=== PATIENT | female | born 1945 | race Caucasian/White ===

== ENCOUNTER 2018-06-21 19:27 | Observation (INO) | payer MEDICARE ==
--- NOTE | 2018-06-21 19:33 | ERPHSYRPT ---
- History of Present Illness Time Seen by Provider: 06/21/18 19:32 Source: family, EMS Exam Limitations: clinical condition Physician History: 72 y/o white female with h/o dementia found on floor by daughter. 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 pts daughter does state pt dementia worsening. daughter states pt is moving into her home because of her falling and late night walking. pt is not eating or drinking well Timing/Duration: today Severity: moderate Character of Deficits: new weakness, impaired speech Deficits: falling, decrease ability to stand, decrease ability to walk Baseline/Normal Cognition: alert but confused Current Cognition: alert but confused, alert/disoriented to time Baseline Gait: walks w/o assistance Associated Symptoms: confusion, weakness, slurred speech, trouble walking Allergies/Adverse Reactions: Sulfa (Sulfonamide Antibiotics) Allergy (Verified 03/15/16 17:12) oxycodone Adverse Reaction (Verified 03/15/16 17:12) Home Medications: Aspirin 81 gm Chew [Baby Aspirin 81 mg Chew] 81 mg PO HS 06/21/18 [History ] Atorvastatin Calcium 10 mg PO HS 06/21/18 [History] Donepezil HCl 10 mg [Aricept 10 MG] 10 mg PO HS 06/21/18 [History] Metoprolol Succinate 25 mg PO HS 06/21/18 [History] Mirtazapine 30 mg [Remeron 30 mg] 45 mg PO HS 06/21/18 [History] Hx Tetanus, Diphtheria Vaccination/Date Given: No Hx Influenza Vaccination/Date Given: No Hx Pneumococcal Vaccination/Date Given: No - Review of Systems Constitutional: Weakness Eyes: No Symptoms Ears, Nose, & Throat: No Symptoms Respiratory: No Symptoms Cardiac: No Symptoms, No Chest Pain, No Palpitations, No Syncope Abdominal/Gastrointestinal: No Symptoms, No Abdominal Pain, No Nausea, No Vomiting, No Diarrhea Genitourinary Symptoms: No Symptoms, No Dysuria, No Frequency, No Hematuria Musculoskeletal: Fall, No Back Pain, No Neck Pain, No Injury Skin: No Symptoms Neurological: Lethargy, Speech Changes Psychological: No Symptoms Endocrine: No Symptoms Hematologic/Lymphatic: No Symptoms Immunological/Allergic: No Symptoms All Other Systems: Reviewed and Negative - Past Medical History Pertinent Past Medical History: Yes Neurological History: Alzheimer's Disease, Dementia, Peripheral Neuropathy Cardiac History: Congestive Heart Failure, High Cholesterol, Hypertension Respiratory History: Bronchitis, COPD Endocrine Medical History: Diabetes Type II Musculoskeletal History: Arthritis GI Medical History: Other History: Renal Disease Psycho-Social History: Depression Other Medical History: INFECTION IN COLON, SURGERY TO REMOVE COLON - Past Surgical History Past Surgical History: Yes Gastrointestinal: Colon Resection Musculoskeletal: Orthopedic Surgery Other Surgical History: BACK SURGERY - Social History Smoking Status: Current every day smoker How long have you smoked: MANY Exposure to second hand smoke: Yes Drug Use: none Patient Lives Alone: No - Female History Hx Now: No (N) - Nursing Vital Signs Nursing Vital Signs: Initial Vital Signs Pulse Rate 84 06/21/18 19:43 Respiratory Rate 16 06/21/18 19:43 Blood Pressure 145/80 06/21/18 19:43 O2 Sat by Pulse Oximetry 96 06/21/18 19:43 Pain Scale Pain Intensity 0 - [place] Coma Scale Best Eye Response (Kendra): (4) open spontaneously Best Verbal Response (Kendra): (4) confused conversation Best Motor Response ([place]): (6) obeys commands Kendra Total: 14 - Physical Exam General Appearance: no apparent distress, alert, anxiety Eye Exam: bilateral eye: normal inspection, PERRL, EOMI Ears, Nose, Throat Exam: normal ENT inspection, dry mucous membranes Neck Exam: normal inspection, non-tender, supple, full range of motion Respiratory: normal breath sounds, lungs clear, airway intact, No chest tenderness, No respiratory distress, No accessory muscle use, No rhonchi, No wheezing, No stridor Cardiovascular: regular rate/rhythm, normal heart sounds, normal peripheral pulses Gastrointestinal: soft, normal bowel sounds, No tenderness, No guarding, No rebound Rectal Exam: not done Back Exam: normal inspection, normal range of motion, No CVA tenderness, No vertebral tenderness Extremity Exam: normal inspection, normal range of motion, pelvis stable 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, 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 Exam: normal hearing, PERRL, tongue midline Motor/Sensory: no motor deficit, no sensory deficit, no pronator drift Skin Exam: normal color, warm, dry SpO2 Interpretation: normal O2 Delivery: Room Air - Course Nursing assessment & vital signs reviewed: Yes EKG Interpreted by Me: RATE (82), Sinus Rhythm, Right Bundle Branch Block, Non- specific ST Changes, Other (s1/q3 pattern; when compared to ekg dated 03/15/16, new s1/q3 pattern) Ordered Tests: Active Orders 24 hr Category Date Time Status Accucheck STAT Care 06/21/18 19:33 Active Math And Science Instructor STAT Care 06/21/18 19:35 Active Catheter-[place] Shea STAT Care 06/21/18 19:33 Active EKG-ER Only STAT Care 06/21/18 19:33 Active IV Insertion STAT Care 06/21/18 19:33 Active Pulse Oximetry (ED) STAT Care 06/21/18 19:33 Active HEAD WITHOUT CONTRAST [CT] Routine Exams 06/21/18 19:38 Taken CBC W DIFF Stat Lab 06/21/18 19:50 Completed CULTURE,URINE Stat Lab 06/21/18 20:30 Received PROTIME WITH INR Stat Lab 06/21/18 19:50 Completed UA W/RFX UR CULTURE Stat Lab 06/21/18 20:30 Completed Medication Summary Discontinued Medications Generic Name Dose Route Start Last Admin Trade Name Kedarq PRN Reason Stop Dose Admin Ceftriaxone Sodium/Dextrose 1 g in 50 mls @ 100 mls/hr 06/21/18 21:44 22:18 Rocephin 1 Gm-D5w 50 Ml Bag IV 06/21/18 22:13 Infused STAT STA Infusion Ceftriaxone Sodium/Dextrose Confirm 06/21/18 21:47 Rocephin 1 Gm-D5w 50 Ml Bag Administered 06/21/18 21:48 Dose 1 g in 50 mls @ ud IV .K-MED ONE Lab/Rad Data: Laboratory Result Diagrams 06/21/18 19:50 Laboratory Results 06/21/18 06/21/18 06/21/18 Range/Units 20:30 19:50 19:50 WBC 12.1 H (4.0-10.5) K/mm3 RBC 5.41 H (4.1-5.4) M/mm3 Hgb 16.1 H (12.0-16.0) gm/dl Hct 49.8 H (35-47) % MCV 92.1 (78-100) fl MCH 29.7 (26-32) pg MCHC 32.3 (32-36) g/dl RDW 13.6 (11.5-14.0) % Plt Count 188 (150-450) K/mm3 MPV 12.2 H (6-9.5) fl Gran % 88.1 H (36.0-66.0) % Eos # (Auto) 0.01 (0-0.5) Absolute Lymphs (auto) 0.68 L (1.0-4.6) Absolute Monos (auto) 0.72 (0.0-1.3) Lymphocytes % 5.6 L (24.0-44.0) % Monocytes % 6.0 (0.0-12.0) % Eosinophils % 0.1 (0.00-5.0) % Basophils % 0.2 (0.0-0.4) % Absolute Granulocytes 10.66 H (1.4-6.9) Basophils # 0.02 (0-0.4) PT 13.3 H (9.95-12.35) SECONDS INR 1.14 (0.8-3.0) Urine Color ESTRELLITA (YELLOW) Urine Appearance CLOUDY (CLEAR) Urine pH 7.0 (5-6) Ur Specific [place] 1.019 (1.005-1.025) Urine Protein 100 (Negative) Urine Ketones TRACE (NEGATIVE) Urine Blood SMALL (0-5) Jacoby/ul Urine Nitrite NEGATIVE (NEGATIVE) Urine Bilirubin NEGATIVE (NEGATIVE) Urine Urobilinogen 4 (0-1) mg/dL Ur Leukocyte Esterase SMALL (NEGATIVE) Urine WBC (Auto) >100 (0-5) /HPF Urine RBC (Auto) NONE (0-2) /HPF U Epithel Cells (Auto) NONE (FEW) /HPF Urine Bacteria (Auto) MANY (NEGATIVE) /HPF Urine Mucus (Auto) MANY (NEGATIVE) /HPF Urine Culture Reflexed YES (NO) Urine Glucose NEGATIVE (NEGATIVE) mg/dL - Progress Progress: improved, re-examined Progress Note: 06/21/18 22:[address] zamorano. i reviewed pt hx, condition, lab, ekg and ct scan head results. he accepts pt for obs. ct scan head reveals pansinusitis but no other acute intracranial process Discussed with .: Zeyad Counseled pt/family regarding: lab results, diagnosis, need for follow-up, rad results - Departure Time of Disposition: 23:00 Departure Disposition: Observation Clinical Impression: Dehydration, UTI (urinary tract infection), Pansinusitis Condition: Stable Critical Care Time: No Referrals: JEFRY HERNANDEZ [ACTIVE STAFF] -
[2018-06-21 19:58] LABS: BASOPHIL % 0.2 % (0.0-0.4); Basophil (Absolute #) 0.02 (0-0.4); Eosinophil % 0.1 % (0.00-5.0); Eosinophil (Absolute #) 0.01 (0-0.5); Granulocyte Absolute (ANC) 10.66 (1.4-6.9); Granulocytes % 88.1 % (36.0-66.0); Hematocrit 49.8 % (35-47); Hemoglobin 16.1 gm/dl (12.0-16.0); Lymphocyte (Absolute #) 0.68 (1.0-4.6); Lymphocytes % 5.6 % (24.0-44.0); Mean Cell Volume 92.1 fl (78-100); Mean Corpuscular Hgb Concent. 32.3 g/dl (32-36); Mean Platelet Volume 12.2 fl (6-9.5); Monocyte (Absolute #) 0.72 (0.0-1.3); Platelet Count 188 K/mm3 (150-450); Red Blood Count 5.41 M/mm3 (4.1-5.4); Red Cell Distribution Width 13.6 % (11.5-14.0); White Blood Count 12.1 K/mm3 (4.0-10.5)
[2018-06-21 20:08] LABS: INR 1.14 (0.8-3.0); PROTIME 13.3 SECONDS (9.95-12.35)
[2018-06-21 20:15] LABS: Mean Corpuscular Hemoglobin 29.7 pg (26-32)
[2018-06-21 21:35] LABS: Appearance CLOUDY (CLEAR); Bacteria MANY /HPF (NEGATIVE); Bilirubin NEGATIVE (NEGATIVE); Blood SMALL Ery/ul (0-5); Glucose NEGATIVE (NEGATIVE); Ketones TRACE (NEGATIVE); Leukocyte Esterase SMALL (NEGATIVE); Mucus MANY /HPF (NEGATIVE); Nitrite NEGATIVE (NEGATIVE); Protein,Urine Dip 100 (Negative); Specific Gravity 1.019 (1.005-1.025); Urobilinogen 4 mg/dL (0-1); WBC >100 /HPF (0-5)
[2018-06-21] MEDS ORDERED: ROCEPHIN 1 Gm-D5w 50 ml Bag** 1 G/50 ML IVPB IV STA (21:44)
[2018-06-21] MEDS ORDERED: ROCEPHIN 1 Gm-D5w 50 ml Bag** 1 G/50 ML IVPB IV ONE (21:47)
[2018-06-22] MEDS ORDERED: TYLENOL 325 MG PO PRN (00:56)
[2018-06-22] MEDS ORDERED: Sodium Chloride 0.9% 1000 ML 1,000 ML IV SCH (00:56)
[2018-06-22] MEDS ORDERED: Zofran 4 MG/2 ML VIAL IV ONE (00:56)
[2018-06-22] MEDS ORDERED: ECOTRIN 81 MG PO ONE (01:25)
[2018-06-22] MEDS ORDERED: Zocor 10MG ONE (01:25)
[2018-06-22] MEDS ORDERED: Toprol-Xl 25MG Tablets ONE (01:25)
[2018-06-22] MEDS ORDERED: Aricept 10 MG ONE (01:26)
[2018-06-22] MEDS ORDERED: REMERON 30 MG ONE (01:26)
[2018-06-22] MEDS: Toprol-Xl 25MG Tablets PO SCH ×2 (01:28→21:39)
[2018-06-22] MEDS: Zocor 10MG PO SCH ×2 (01:28→21:39)
[2018-06-22] MEDS: Aricept 10 MG PO SCH ×2 (01:28→21:38)
[2018-06-22] MEDS: ECOTRIN 81 MG PO SCH ×2 (01:28→21:39)
[2018-06-22] MEDS: REMERON 30 MG PO SCH ×2 (01:30→21:38)
[2018-06-22 03:31] LABS: 027 TOX PROD PRESUMPTIVE NEGATIVE (NEGATIVE); TOXIGENIC C. DIFF ORG NEGATIVE (NEGATIVE)
[2018-06-22 05:49] LABS: Hematocrit 44.7 % (35-47); Hemoglobin 14.6 gm/dl (12.0-16.0); Mean Cell Volume 91.6 fl (78-100); Mean Corpuscular Hemoglobin 29.9 pg (26-32); Mean Corpuscular Hgb Concent. 32.7 g/dl (32-36); Mean Platelet Volume 11.5 fl (6-9.5); Platelet Count 160 K/mm3 (150-450); Red Blood Count 4.88 M/mm3 (4.1-5.4); Red Cell Distribution Width 13.5 % (11.5-14.0); White Blood Count 12.5 K/mm3 (4.0-10.5)
[2018-06-22 06:17] LABS: ALBUMIN 3.7 g/dL (3.5-5.0); ALKALINE PHOSPHATASE 132 U/L (38-126); ANION GAP 12.7 MEQ/L (5-15); BLOOD UREA NITROGEN 37 mg/dL (7-17); CHLORIDE 105 mmol/L (98-107); Calcium 9.1 mg/dL (8.4-10.2); Carbon Dioxide 26 mmol/L (22-30); Creatinine 1 0.89 mg/dL (0.52-1.04); Glucose 125 mg/dL (74-106); Potassium 3.4 mmol/L (3.5-5.1); SGOT/AST 43 U/L (14-36); SGPT/ALT 23 U/L (0-35); SODIUM 140 mmol/L (137-145); Total Protein 6.8 g/dL (6.3-8.2)
[2018-06-22] MEDS ORDERED: NON-FORMULARY ITEM (Naproxen Sodium [Aleve] 220 MG) PO PRN (07:12)
--- NOTE | 2018-06-22 08:44 | XRAY ---
Indication: Weakness. Possible stroke. Multiple contiguous axial images obtained through the head without contrast. Comparison: March 17, 2016. Stable age-appropriate global atrophy, mild periventricular degenerative micro-ischemia bilaterally, and remote left caudate head lacunar infarct. No acute intracranial hemorrhage, abnormal extra-axial fluid collection, or mass effect. Fourth ventricle is midline without hydrocephalus. Bony calvarium intact. Visualized paranasal sinuses now demonstrates mild/moderate mucosal thickening bilaterally. Mastoid air cells are clear. Impression: 1. Nonacute senile brain including remote left caudate lacunar infarct. 2. New pansinusitis. CT DI 70.00
[2018-06-22 09:03] LABS: INFLUENZA A NEGATIVE (NEGATIVE); INFLUENZA B NEGATIVE (NEGATIVE); RESPIRATORY SYNCTIAL VIRUS NEGATIVE (Negative)
[2018-06-22] MEDS: Naprosyn 500 MG PO PRN ×2 (09:17→21:38)
--- NOTE | 2018-06-22 09:35 | HP ---
CHIEF COMPLAINT: Lethargy and fall. HISTORY OF PRESENT ILLNESS: The patient is a 72 year-old white female who was found at home laying on the floor by her daughter. The daughter reports that the patient does have dementia which has been worsening recently over the past couple of three days particularly. She had been followed by Dr. Gallegos who has now left for another job. The patient otherwise is known to have dementia. Recently she has not been eating or drinking well. MEDICATIONS: Her home medications currently are aspirin 81 mg a day, Atorvastatin 10 mg, benazepril 10 mg, metoprolol 25 mg, Remeron 30 mg and Naproxen 220 mg every 12 hours PRN for pain. PHYSICAL EXAMINATION: Her vital signs on admission showed temperature 97.9F, pulse 84, respiratory rate 16, blood pressure 145/80. O2 saturation 96% on room air. Presently the patient is quite lethargic and very slow to respond, was unable to drink water from a straw when her daughter offered it to her. Although her daughter reports that she is quite slow to respond in the morning and is much better a couple hours after the day has gotten started. Physical examination otherwise reveals her to be an elderly, white female who is quite weak as mentioned. HEENT: Appear to be normocephalic, atraumatic. Oropharynx appeared to be somewhat dry. NECK: Supple. CHEST: Clear to auscultation. HEART: Reveals a 3/6 systolic murmur. There are no rubs or gallops heard, appears to be in sinus rhythm. ABDOMEN: Soft, bowel sounds are normal. There are no palpable masses. She is wearing a Depends diaper. EXTREMITIES: Without cyanosis, clubbing or edema. NEUROLOGIC: The patient is quite lethargic. She does open her eyes but has not responded verbally at this point. LAB DATA AND TESTS: The patient's laboratory studies in the emergency room showed international normalized ratio 1.14. Her white count was 12,100, hemoglobin 16.1, PLT count 188,000. There were 88.1% granulocytes. She did have a urine that showed a specific gravity of 1.019, leukocytes were small, nitrite negative however there was greater than 100 white blood cells per high power field. She had a Clostridium difficile done for what appeared to be some diarrhea which was negative. Her sugar is 125, BUN 37, creatinine 0.89. Electrolytes show the potassium to be slightly low at 3.4. Liver enzymes are normal. ASSESSMENT: A patient with dehydration and probable urinary tract infection. Urine has been cultured. She will begin on Rocephin empirically. She is receiving IV fluids for IV fluid hydration. She appears to be dehydrated as well. The patient has baseline underlying problem with Alzheimer's. The patient has now been admitted. She is receiving IV fluids and IV Rocephin empirically while the cultures are pending. The patient, as stated from her daughter, will be going to her sister's home for care after this stay and they are requesting a hospital bed. At this time we will facilitate this and plan for her possible discharge home upon discharge from the hospital.
[2018-06-22] MEDS: ENOXAPARIN SODIUM SQ SCH (10:25)
[2018-06-22] MEDS: D5W/0.45NS W/ 20mEq KCl 1000 ML 1,000 ML IV SCH ×2 (10:59→19:45)
[2018-06-22] MEDS: ROCEPHIN 1 Gm-D5w 50 ml Bag** 1 G/50 ML IVPB IV SCH (21:39)
[2018-06-23] MEDS: D5W/0.45NS W/ 20mEq KCl 1000 ML 1,000 ML IV SCH ×3 (04:12→21:24)
[2018-06-23 05:40] LABS: BASOPHIL % 0.2 % (0.0-0.4); Basophil (Absolute #) 0.02 (0-0.4); Eosinophil % 2.7 % (0.00-5.0); Eosinophil (Absolute #) 0.22 (0-0.5); Granulocyte Absolute (ANC) 5.97 (1.4-6.9); Granulocytes % 72.4 % (36.0-66.0); Hematocrit 44.1 % (35-47); Hemoglobin 14.2 gm/dl (12.0-16.0); Lymphocyte (Absolute #) 1.01 (1.0-4.6); Lymphocytes % 12.3 % (24.0-44.0); Mean Cell Volume 93.4 fl (78-100); Mean Corpuscular Hemoglobin 30.1 pg (26-32); Mean Corpuscular Hgb Concent. 32.2 g/dl (32-36); Mean Platelet Volume 11.7 fl (6-9.5); Monocyte (Absolute #) 1.02 (0.0-1.3); Monocytes % 12.4 % (0.0-12.0); Platelet Count 145 K/mm3 (150-450); Red Blood Count 4.72 M/mm3 (4.1-5.4); Red Cell Distribution Width 13.6 % (11.5-14.0); White Blood Count 8.2 K/mm3 (4.0-10.5)
[2018-06-23 06:01] LABS: ALBUMIN 3.1 g/dL (3.5-5.0); ALKALINE PHOSPHATASE 112 U/L (38-126); ANION GAP 10.1 MEQ/L (5-15); BLOOD UREA NITROGEN 21 mg/dL (7-17); CHLORIDE 110 mmol/L (98-107); Calcium 8.5 mg/dL (8.4-10.2); Carbon Dioxide 25 mmol/L (22-30); Creatinine 1 0.75 mg/dL (0.52-1.04); Glucose 142 mg/dL (74-106); Potassium 3.9 mmol/L (3.5-5.1); SGOT/AST 38 U/L (14-36); SGPT/ALT 19 U/L (0-35); SODIUM 141 mmol/L (137-145)
[2018-06-23] MEDS: ENOXAPARIN SODIUM SQ SCH (09:40)
--- NOTE | 2018-06-23 10:54 | PCM.NOTE ---
Date and Time: 06/23/18 1048 Subjective Assessment: Her daughter is at the bedside; History taken from daughter due to patient having dementia; she states that yesterday the patient complained of right knee pain for the first time. Daughter reports when she found her before admission, she was lying on the floor so she doesn't know if she may have hurt her knee. Daughter states she is having trouble bending it. She usually is able to ambulate on her own at home. She also smokes at home and is now asking to go out to smoke so her daughter would like for her to have a nicotine patch. She has a catheter in due to decreased mobility, her daughter reports She reports patient has sinus problems too. She states her mom is much more alert today. - Review of Systems Constitutional: Weakness Eyes: Photophobia Ears, Nose, & Throat: No Symptoms Respiratory: No Symptoms Cardiac: No Symptoms Abdominal/Gastrointestinal: No Symptoms Genitourinary Symptoms: No Symptoms Musculoskeletal: Joint Pain Objective Exam General Appearance: no apparent distress Neurologic Exam: alert, cooperative, normal mood/affect, other (strength 5/5 in hands bilat) Skin Exam: normal color, warm, dry, No rash Respiratory Exam: normal breath sounds, lungs clear, No crackles/rales, No rhonchi, No wheezing Cardiovascular Exam: regular rate/rhythm, normal heart sounds, No murmur, No friction rub, No gallop Gastrointestinal/Abdomen Exam: soft, normal bowel sounds, No tenderness, No distention, No mass Extremity Exam: other (patient will barely flex either knee while in bed, no point tenderness; mild swelling of right knee without erythema) OBJECTIVE DATA Vital Signs: Vital Signs - 24 hr Temp Pulse Resp BP Pulse Ox 06/23/18 09:00 98 F 56 L 24 119/65 94 L 06/23/18 04:26 98.3 F 64 20 128/76 94 L 06/23/18 00:55 98.0 F 57 L 20 98/52 94 L 06/22/18 20:00 97.8 F 67 20 103/55 93 L 06/22/18 17:42 97.8 F 20 97 06/22/18 16:13 98.9 F 68 20 132/74 95 06/22/18 12:15 98.8 F 64 20 128/58 96 Pain Assessment - Last Documented Pain Intensity 3 Pain Scale Used [facility] Intake and Output: Intake & Output 06/21/18 06/22/18 06/23/18 06/24/18 06:59 06:59 06:59 07:59 Intake Total 138 2817 Output Total 280 1600 Balance -142 1217 Weight 83.3 kg 88 kg Lab Results: Lab Results-Last 24 Hours 06/23/18 06/23/18 Range/Units 05:34 05:34 WBC 8.2 (4.0-10.5) K/mm3 RBC 4.72 (4.1-5.4) M/mm3 Hgb 14.2 (12.0-16.0) gm/dl Hct 44.1 (35-47) % MCV 93.4 (78-100) fl MCH 30.1 (26-32) pg MCHC 32.2 (32-36) g/dl RDW 13.6 (11.5-14.0) % Plt Count 145 L (150-450) K/mm3 MPV 11.7 H (6-9.5) fl Gran % 72.4 H (36.0-66.0) % Eos # (Auto) 0.22 (0-0.5) Absolute Lymphs (auto) 1.01 (1.0-4.6) Absolute Monos (auto) 1.02 (0.0-1.3) Lymphocytes % 12.3 L (24.0-44.0) % Monocytes % 12.4 H (0.0-12.0) % Eosinophils % 2.7 (0.00-5.0) % Basophils % 0.2 (0.0-0.4) % Absolute Granulocytes 5.97 (1.4-6.9) Basophils # 0.02 (0-0.4) Sodium 141 (137-145) mmol/L Potassium 3.9 (3.5-5.1) mmol/L Chloride 110 H (98-107) mmol/L Carbon Dioxide 25 (22-30) mmol/L Anion Gap 10.1 (5-15) MEQ/L BUN 21 H (7-17) mg/dL Creatinine 0.75 (0.52-1.04) mg/dL Estimated GFR > 60.0 ML/MIN Glucose 142 H (74-106) mg/dL Calcium 8.5 (8.4-10.2) mg/dL Total Bilirubin 0.70 (0.2-1.3) mg/dL AST 38 H (14-36) U/L ALT 19 (0-35) U/L Alkaline Phosphatase 112 (38-126) U/L Serum Total Protein 6.0 L (6.3-8.2) g/dL Albumin 3.1 L (3.5-5.0) g/dL Radiology Exams: Radiology Procedures Category Date Time Status HEAD WITHOUT CONTRAST [CT] Routine Exams 06/21/18 19:38 Completed KNEE (MIN 4 VIEW) Routine Exams 06/23/18 Ordered Multi-Disciplinary Progress Notes: Multi-Disciplinary Progress Notes 06/22/18 16:37 Case Management Note by Nadine Harrington REFERRAL FAXED TO [facility] [employer], . Initialized on 06/22/18 16:37 - END OF NOTE Assessment/Plan (1) UTI (urinary tract infection) Current Visit: Yes Status: Acute Assessment & Plan: Continue ceftriaxone. I would like to remove voss once patient is more mobile. Code(s): N39.0 - URINARY TRACT INFECTION, SITE NOT SPECIFIED (2) Dehydration Current Visit: Yes Status: Acute Assessment & Plan: Resolving with IV fluids. Code(s): E86.0 - DEHYDRATION (3) Dementia Current Visit: Yes Status: Acute Code(s): F03.90 - UNSPECIFIED DEMENTIA WITHOUT BEHAVIORAL DISTURBANCE (4) Knee pain, right Current Visit: Yes Status: Acute Assessment & Plan: Check knee X-ray, Tylenol as needed for pain. Code(s): M25.561 - PAIN IN RIGHT KNEE (5) Tobacco abuse Current Visit: Yes Status: Acute Assessment & Plan: Start nicotine patch. Code(s): Z72.0 - TOBACCO USE (6) Gait instability Current Visit: Yes Status: Acute Assessment & Plan: Will ask for PT consult; will need to make sure patient is safe to return home with her daughter. Code(s): R26.81 - UNSTEADINESS ON FEET
[2018-06-23] MEDS: Nicoderm CQ 21 MG TOP SCH (11:12)
[2018-06-23] MEDS: REMERON 30 MG PO SCH (21:35)
[2018-06-23] MEDS: ROCEPHIN 1 Gm-D5w 50 ml Bag** 1 G/50 ML IVPB IV SCH (21:35)
[2018-06-23] MEDS: ECOTRIN 81 MG PO SCH (21:36)
[2018-06-23] MEDS: Aricept 10 MG PO SCH (21:36)
[2018-06-23] MEDS: Toprol-Xl 25MG Tablets PO SCH (21:36)
[2018-06-23] MEDS: Zocor 10MG PO SCH (21:36)
[2018-06-23] MEDS: Naprosyn 500 MG PO PRN (21:53)
--- NOTE | 2018-06-23 22:23 | XRAY ---
Indication: Pain. Comparison: None 3 views of the right knee demonstrates osteopenia, small nonspecific suprapatellar effusion, minimal vascular calcifications, posterior fabella, and mild/moderate tricompartmental degenerative changes, greatest involving lateral compartment. No other bony, articular, or soft tissue abnormalities. Comment: Preliminary interpretation was made by [facility]. No discrepancy.
[2018-06-24] MEDS: D5W/0.45NS W/ 20mEq KCl 1000 ML 1,000 ML IV SCH ×3 (06:41→23:56)
[2018-06-24] MEDS: Nicoderm CQ 21 MG TOP SCH (10:25)
[2018-06-24] MEDS: ENOXAPARIN SODIUM SQ SCH (10:25)
[2018-06-24] MEDS ORDERED: DESYREL 50 MG PO PRN (11:46)
--- NOTE | 2018-06-24 11:46 | PCM.NOTE ---
Date and Time: 06/24/18 1142 Subjective Assessment: One of her daughters is at bedside and also talking with other daughter on the phone. They are concerned about her not sleeping well at night and report she is grouchy today because she did not sleep well. She takes melatonin at home but they report this is not helping anymore and they want something else. I discussed with them the risks of falling and grogginess but they still want her to be given something at night to help her sleep. They report she continues to have trouble to stand and has not been out of bed yet today. - Review of Systems All Other Systems: Unable due to dementia Objective Exam General Appearance: no apparent distress, alert, other (says someone is "missing " from the room) Neurologic Exam: alert, cooperative Skin Exam: normal color, warm, dry Respiratory Exam: normal breath sounds, lungs clear, No crackles/rales, No rhonchi, No wheezing Cardiovascular Exam: regular rate/rhythm, normal heart sounds, No murmur, No friction rub, No gallop Gastrointestinal/Abdomen Exam: soft, normal bowel sounds, No tenderness, No distention, No mass Extremity Exam: other (no c/c/e) OBJECTIVE DATA Vital Signs: Vital Signs - 24 hr Temp Pulse Resp BP Pulse Ox 06/24/18 07:40 98.3 F 64 18 141/67 93 L 06/24/18 04:22 98.6 F 67 24 150/72 94 L 06/24/18 00:00 98.5 F 73 24 127/66 94 L 06/23/18 20:00 98.3 F 73 24 142/80 97 06/23/18 17:00 98.2 F 63 20 156/80 95 06/23/18 13:00 98.2 F 69 20 141/77 92 L Pain Assessment - Last Documented Pain Intensity 3 Pain Scale Used 0-10 Pain Scale,FLACC Intake and Output: Intake & Output 06/22/18 06/23/18 06/24/18 06/25/18 05:59 05:59 06:59 06:59 Intake Total Output Total Balance Weight Radiology Exams: Radiology Procedures Category Date Time Status KNEE (3 VIEWS) Routine Exams 06/23/18 15:42 Completed Multi-Disciplinary Progress Notes: Multi-Disciplinary Progress Notes 06/23/18 14:45 Case Management Note by Titzer,Shanae S/W DAUGHTER, AND ALEXANDRA ETIENNE. PLAN IS STILL TO TAKE PATIENT HOME TO DAUGHTER'S HOME ON D/C. SHE DID REMEMBER HER NEUROLOGIST NAME DR. POSEY, IN [place] , WHO DX PT WITH ALZHEIMER'S AND VASCULAR DEMENTIA. SHE HAS A WALKER, A CANE AND A SHOWER CHAIR AT HOME, WELL HAVING A HANDICAP ACCESSIBLE BATHROOM/ SHOWER. SHE IS A PATIENT OF DR. JUSTIN HERNANDEZ AND WILL BE LOOKING FOR A NEW PHYSICIAN. PLAN TO BE HERE ON Monday WHEN PT EVALUATES HER MOTHER, FOR GAIT INSTABILITY TO MAKE SURE THAT SHE IS SAFE TO GO HOME WITH DAUGHTER. PLAN IS SOUND. ADVISED THAT INFO HAD BEEN FAXED TO [facility]. WILL GIVE TITLES OF CAREGIVER BOOKS FOR CHILDREN AND THE CAREGIVER. WILL CONTINUE TO MONITOR FOR ALL D/C NEEDS. Initialized on 06/23/18 14:45 - END OF NOTE Assessment/Plan (1) UTI (urinary tract infection) Current Visit: Yes Status: Acute Assessment & Plan: Continue ceftriaxone. Code(s): N39.0 - URINARY TRACT INFECTION, SITE NOT SPECIFIED (2) Dehydration Current Visit: Yes Status: Resolved Assessment & Plan: Resolved; decrease IV fluids and encourage oral intake. Code(s): E86.0 - DEHYDRATION (3) Dementia Current Visit: Yes Status: Acute Assessment & Plan: Will ask nurses not to wake her in the middle of the night for vitals when she is sleeping. Discussed with warehouse logistics manager, Lorenza, and order written. Code(s): F03.90 - UNSPECIFIED DEMENTIA WITHOUT BEHAVIORAL DISTURBANCE (4) Knee pain, right Current Visit: Yes Status: Acute Assessment & Plan: X-ray was neg for fracture but showed some mild swelling and arthritis. Code(s): M25.561 - PAIN IN RIGHT KNEE (5) Tobacco abuse Current Visit: Yes Status: Acute Code(s): Z72.0 - TOBACCO USE (6) Gait instability Current Visit: Yes Status: Acute Assessment & Plan: PT eval requested. Code(s): R26.81 - UNSTEADINESS ON FEET (7) Insomnia Current Visit: Yes Status: Acute Assessment & Plan: Will try low dose trazodone. Most likely she is sundowning due to dementia. Continue fall risk protocol. Code(s): G47.00 - INSOMNIA, UNSPECIFIED
[2018-06-24] MEDS: REMERON 30 MG PO SCH (20:32)
[2018-06-24] MEDS: Toprol-Xl 25MG Tablets PO SCH (20:32)
[2018-06-24] MEDS: Zocor 10MG PO SCH (20:32)
[2018-06-24] MEDS: ROCEPHIN 1 Gm-D5w 50 ml Bag** 1 G/50 ML IVPB IV SCH (20:32)
[2018-06-24] MEDS: Aricept 10 MG PO SCH (20:32)
[2018-06-24] MEDS: ECOTRIN 81 MG PO SCH (20:32)
[2018-06-24] MEDS: Naprosyn 500 MG PO PRN (20:33)
[2018-06-24 21:33] VITALS: BP 149/70; PULSE 70; O2SAT 95
[2018-06-25] MEDS: ENOXAPARIN SODIUM SQ SCH (08:33)
--- NOTE | 2018-06-25 10:51 | DS ---
DISCHARGE DIAGNOSES: 1) ESCHERICHIA COLI URINARY TRACT INFECTION. 2) DEHYDRATION. 3) DEMENTIA. HISTORY: The patient is a 72 year-old white female who has been having worsening of her dementia issues. For approximately two days prior to admission she stopped eating, drinking and became dehydrated. She presented to the emergency room and admitted to the hospital for evaluation and management. HOSPITAL COURSE: The patient was began on IV fluids and IV antibiotics. She was found to have Escherichia coli urinary tract infection. When she first arrived she was unable to drink fluid from even a straw. However by 06/24/2018 she was up ambulating down the hallway and back and eating although she continued to have some sun-downing and issues with hallucinations. The patient's daughter reports that she had gotten to the point where she felt that she was going to have to move her in with her even prior to this. The plan is to take her to her daughter's home where she will now be living. We will remove her urinary catheter and allow her to be discharged home. As she has allergy to sulfa we will place her on cefazolin for urinary tract infection as it is sensitive on the current culture. She will be on 500 mg t.i.d. and we will give her an appointment to see in the office in three to four days for follow up to be sure that things are improving at home with regards to her dementia. Her daughter reports she has seen Dr. Soares in the past approximately two months ago when he made the diagnosis of dementia. We will likely have her see Dr. Soares again in follow up if the problem with the hallucinations persist.
== END 2018-06-25 10:52 | disposition home health service (06) ==
LOC: ED 19:27 → MED SURG 06-22 00:40
PROVIDERS: ADMIT Family Medicine; ATTEND Family Medicine
DX: N39.0 Urinary tract infection, site not specified (principal); B96.20 Unspecified Escherichia coli [E. coli] as the cause of diseases classified elsewhere; E86.0 Dehydration; F03.90 Unspecified dementia, unspecified severity, without behavioral disturbance, psychotic disturbance, mood disturbance, and anxiety; M25.561 Pain in right knee; R26.89 Other abnormalities of gait and mobility; G47.00 Insomnia, unspecified; R53.1 Weakness; W19.XXXA Unspecified fall, initial encounter; Y92.009 Unspecified place in unspecified non-institutional (private) residence as the place of occurrence of the external cause; Z79.899 Other long term (current) drug therapy; Z72.0 Tobacco use
CPT/HCPCS: 36000; 36415; 51702; 70450; 73562; 80053; 81001; 82962; 85025; 85027; 85610; 87077; 87086; 87186; 87493; 87631; 93005; 93041; 96365; 97161; 99285; G0008; G0378; 90662; J0696; J1650; A9270-GY